=== PATIENT | male | born 1975 | race Caucasian/White ===

== ENCOUNTER 2022-10-01 00:12 | Inpatient (IN) | payer MEDICAID ==
[~2022-10-01] VITALS: Ht 167.6 cm; Wt 69.6 kg
[2022-10-01] MEDS ORDERED: KETOROLAC 30MG/ML VIAL IM ONE (01:45)
[2022-10-01 08:00] VITALS: BP 124/78
[2022-10-01 10:12] VITALS: BP 124/78
[2022-10-01] MEDS ORDERED: IPRATROPIUM BROMIDE (0.02%) 0.5MG/2.5ML NEB HHN PRN (11:45)
[2022-10-01] MEDS: SODIUM CHLORIDE 0.9% 1,000 ML IV SCH (11:45)
[2022-10-01] MEDS ORDERED: CLONIDINE 0.1MG TABLET PO PRN (11:45)
[2022-10-01] MEDS ORDERED: IPRATROPIUM/ALBUTEROL 0.5-3(2.5)MG/3ML NEB HHN PRN (11:45)
[2022-10-01] MEDS ORDERED: ALBUTEROL (0.083%) 2.5MG/3ML NEB HHN PRN (11:45)
[2022-10-01] MEDS ORDERED: ONDANSETRON HCL 4MG/2ML INJ IV PRN (11:45)
[2022-10-01] MEDS ORDERED: ACETAMINOPHEN 325MG TABLET PO PRN (11:45)
[2022-10-01] MEDS ORDERED: DIPHENHYDRAMINE 50MG/ML VIAL IV PRN (11:45)
[2022-10-01 12:00] VITALS: BP 128/64
[2022-10-01] MEDS ORDERED: MORPHINE SULFATE 2 MG/ML CPJ (NOT FOR IM USE) IV PRN (15:00)
[2022-10-01] MEDS ORDERED: NALOXONE HCL 0.4MG/ML VIAL IV PRN (15:00)
[2022-10-01 16:00] VITALS: BP 138/57
[2022-10-01 16:13] LABS: BASOPHILS % 0.3 % (0.0-2.0); EOSINOPHILS % 1.4 % (0.0-5.0); HEMATOCRIT. 46.5 % (42.0-52.0); HEMOGLOBIN. 15.8 g/dL (14.0-18.0); LYMPHOCYTES % 22.9 % (20.0-50.0); MEAN CORPUSCULAR HEMOGLOBIN 32.7 pg (28.0-32.0); MEAN CORPUSCULAR VOLUME 96.5 fL (80.0-94.0); MEAN PLATELET VOLUME 8.3 fl (7.4-10.4); MONOCYTES % 8.1 % (2.0-8.0); NEUTROPHILS % 67.3 % (40.0-76.0); PLATELET 282 x1000/uL (130-400); RED BLOOD CELL COUNT 4.82 mill/uL (4.7-6.1)
[2022-10-01 16:22] LABS: CHLORIDE 108 mEq/L (98-107)
[2022-10-01 20:00] VITALS: BP 108/67
[2022-10-02] VITALS: BP 117/60
[2022-10-02] MEDS: SODIUM CHLORIDE 0.9% 1,000 ML IV SCH (00:58)
[2022-10-02 04:00] VITALS: BP 129/71
[2022-10-02 08:36] LABS: BASOPHILS % 0.7 % (0.0-2.0); EOSINOPHILS % 3.3 % (0.0-5.0); HEMATOCRIT. 41.8 % (42.0-52.0); HEMOGLOBIN. 14.8 g/dL (14.0-18.0); LYMPHOCYTES % 40.1 % (20.0-50.0); MEAN CORPUSCULAR HEMOGLOBIN 33.9 pg (28.0-32.0); MEAN CORPUSCULAR VOLUME 95.7 fL (80.0-94.0); MEAN PLATELET VOLUME 8.4 fl (7.4-10.4); MONOCYTES % 11.3 % (2.0-8.0); NEUTROPHILS % 44.6 % (40.0-76.0); PLATELET 239 x1000/uL (130-400); RED BLOOD CELL COUNT 4.37 mill/uL (4.7-6.1); RED CELL DISTRIBUTION WIDTH 12.8 % (11.6-14.6)
[2022-10-02 08:50] LABS: CHLORIDE 107 mEq/L (98-107)
[2022-10-02 10:46] VITALS: BP 122/78
== END 2022-10-02 11:50 | disposition home or self-care (01) | DRG 254 ==
LOC: ER 00:26 → MICUSO 05:28 → 6EST 09:17
PROVIDERS: ADMIT Internal Medicine; ATTEND Internal Medicine
DX: T18.5XXA Foreign body in anus and rectum, initial encounter (principal); E44.1 Mild protein-calorie malnutrition; X58.XXXA Exposure to other specified factors, initial encounter; Y93.89 Activity, other specified; Y92.89 Other specified places as the place of occurrence of the external cause; Y99.8 Other external cause status; Z68.24 Body mass index [BMI] 24.0-24.9, adult
CPT/HCPCS: 36415; 74018; 74176; 80048; 80053; 85025; 93970; 99285; J1885; J7030

== ENCOUNTER 2024-05-21 21:36 | Emergency (ER) | payer SELFPAY ==
[~2024-05-21] VITALS: Ht 175.3 cm; Wt 75.0 kg
[2024-05-21 21:45] VITALS: PULSE 97; O2SAT 97
[2024-05-21 21:52] VITALS: BP 125/77; RESP 16; TEMP 98; O2SAT 97
== END 2024-05-22 01:03 | disposition left against medical advice (07) ==
LOC: ER 21:36
DX: M79.672 Pain in left foot (principal); Z53.21 Procedure and treatment not carried out due to patient leaving prior to being seen by health care provider